=== PATIENT | male | born 1995 | race American Indian/Alaskan Native ===

== ENCOUNTER 2018-02-03 16:53 | Emergency (ER) | payer BC ==
[2018-02-03 16:53] VITALS: BMI 28.1
[2018-02-03 17:01] VITALS: BP 120/46; PULSE 59; RESP 16; TEMP 98.1; O2SAT 99
--- NOTE | 2018-02-03 17:19 | ED PDOC ---
HPI: Back Time Seen by Provider: 02/03/18 17:08 Chief Complaint (Nursing): Back Pain Chief Complaint (Provider): back pain History Per: Patient Additional Complaint(s): 22 y/o male presents with low back pain for the past 2 weeks. Patient states he has had pain to low back on and off for several years. He does report a significant amount of heavy lifting at work. Patient denies bowel or bladder dysfunction. No fever or chills. He denies recent fall or trauma. He states low back pain is non radiating. PMD: none Past Medical History Reviewed: Historical Data, Nursing Documentation, Vital Signs Vital Signs: Last Vital Signs Temp 98.1 F 02/03/18 16:58 Pulse 59 L 02/03/18 16:58 Resp 16 02/03/18 16:58 BP 120/46 L 02/03/18 16:58 Pulse Ox 99 02/03/18 16:58 - Medical History PMH: Asthma - Surgical History Surgical History: No Surg Hx - Family History Family History: States: No Known Family Hx - Living Arrangements Living Arrangements: With Family - Social History Current smoker - smoking cessation education provided: No Alcohol: None Drugs: Denies - Home Medications Home Medications: Ambulatory Orders Medication Instructions Recorded Albuterol HFA [Ventolin HFA 90 2 puff IH [id number] #1 inhaler 03/28/17 mcg/actuation (8 g)] Ranitidine HCl [Zantac] 150 mg PO DAILY #20 tablet 04/12/17 tiZANidine [Zanaflex] 4 mg PO Q8H PRN #20 tab 02/03/18 traMADol [Ultram] 50 mg PO Q6H PRN #15 tab 02/03/18 - Allergies Allergies/Adverse Reactions: Allergies Allergy/AdvReac Type Severity Reaction Status Date / Time NSAIDS (Non-Steroidal Allergy "kidney Verified 02/03/18 16:58 Anti-Inflamma problems" Review of Systems ROS Statement: Except As Marked, All Systems Reviewed And Found Negative Constitutional: Negative for: Fever, Chills Gastrointestinal: Negative for: Nausea, Vomiting, Abdominal Pain Genitourinary Male: Negative for: Dysuria, Frequency, Incontinence, Hematuria Musculoskeletal: Positive for: Back Pain Physical Exam - Reviewed Nursing Documentation Reviewed: Yes Vital Signs Reviewed: Yes - Physical Exam Appears: Positive for: Well, Non-toxic, No Acute Distress Skin: Positive for: Normal Color. Negative for: Rash Eye Exam: Positive for: Normal appearance Cardiovascular/Chest: Positive for: Regular Rate, Rhythm Respiratory: Positive for: Normal Breath Sounds Back: Positive for: Vertebral Tenderness (mildine to lumbar spine with no step off) Extremity: Positive for: Normal ROM Neurologic/Psych: Positive for: Alert, Oriented, Gait (steady) - Laboratory Results Urine dip results: Negative for: Leukocyte Esterase, Blood, Nitrate, Ketones, Glucose, Bilirubin, Protein - ECG O2 Sat by Pulse Oximetry: 99 Pulse Ox Interpretation: Normal - Other Rad LS Spine X-ry X-Ray: Interpreted by Me, Viewed By Me X-Ray Interpretation: no fx, no dis Medical Decision Making Medical Decision Makin22 y/o with low back pain Plan: PO motrin PO tylenol X-ray LS Spine Urine dip Patient is aware of all diagnostic testing results, all questions answered. Patient given rx tramadol and tizanidine. He was referred to ortho for follow up. Disposition - Clinical Impression Clinical Impression: Back strain - Patient ED Disposition Is Patient to be Admitted: No Counseled Patient/Family Regarding: Studies Performed, Diagnosis, Need For Followup, Rx Given - Disposition Referrals: Emanuel Whittington MD [Staff Provider] - Disposition: Routine/Home Disposition Time: 18:28 Condition: STABLE Additional Instructions: Take rx meds as directed as needed for pain. Follow up with primary care doctor or with orthopedist for any persistent symptoms. Prescriptions: tiZANidine [Zanaflex] 4 mg PO Q8H PRN #20 tab PRN Reason: Muscle Pain traMADol [Ultram] 50 mg PO Q6H PRN #15 tab PRN Reason: Pain, Moderate (4-7) Instructions: Muscle Strain, Low Back Pain in Adults, Back Exercises Forms: [facility] ([place]), [facility] ED School/Work Excuse
--- NOTE | 2018-02-03 18:28 | RAD ---
Date of service: 02/03/2018 PROCEDURE: Radiographs of the Lumbar Spine. HISTORY: Back pain COMPARISON: No prior. FINDINGS: BONES: There is normal alignment of the lumbar vertebral bodies. There is normal lumbar lordosis. There is no acute fracture, spondylolysis or spondylolisthesis. Bone mineralization is normal. DISC SPACES: There is mild degenerative disc disease at L5-S1. The remaining disc heights are maintained. OTHER FINDINGS: There are no pathologic soft tissue calcifications. Both sacroiliac joints are normal. IMPRESSION: No acute fracture, spondylolysis or spondylolisthesis. Mild degenerative disc disease at L5-S1.
== END 2018-02-03 18:41 | disposition home or self-care (01) ==
LOC: H.ER 16:53
DX: S39.012A Strain of muscle, fascia and tendon of lower back, initial encounter (principal); X58.XXXA Exposure to other specified factors, initial encounter; Y92.89 Other specified places as the place of occurrence of the external cause